=== PATIENT | male | born 1960 | race Caucasian/White ===

== ENCOUNTER → 2016-12-22 | Outpatient (CLI) | payer MEDICARE, OTHER ==
[~2016-12-22] MED LIST: DICY20TA3 PO; DILT240C2 PO; IBUP-1060 PO; IOHEXOL 180 MG/ML 10 ML VIAL. IT ONE; LIDOCAINE 1% Multi-Dose 20 ML VIAL. ID ONE; LISI1TAB5 PO; LISI2.5T PO; LOPE2TAB27 PO; METH10TA2 PO; OXCA600T PO; SILD10VI2 IV
--- NOTE | 2016-12-22 15:14 | KCIC ---
PROCEDURE Lumbar myelogram 12/22/2016 HISTORY Low back pain which radiates down the left leg for 4 months. TECHNIQUE After the risks and benefits of the procedure were explained the patient, written informed consent was obtained. The patient was placed prone on the fluoroscopy table lower back was prepped and draped in sterile fashion. 1 percent lidocaine was used as a local anesthetic. Under fluoroscopic guidance, the thecal sac of the lumbar cistern was punctured at the L3-4 level using a 25 gauge Viki needle. After confirming clear CSF return, 15 cc of Omnipaque 180 were injected through the needle into the thecal sac of the lumbar cistern under fluoroscopic control. Following this the needle was removed and hemostasis achieved at the puncture site. A sterile Band-Aid was placed on the skin puncture site. AP, lateral, bilateral oblique and standing neutral and flexion and extension lateral digital spot radiographs of the lumbar spine were obtained. Following this the patient was taken to CT where a CT scan of the lumbar spine was performed. This will be reported separately. The patient was then taken to the recovery area were he was observed for approximately 30 minutes prior to discharge home. The patient was sent home with an instruction sheet. The patient tolerated the procedure well and there were no immediate complications. The total fluoroscopic time for this study was 1 minutes 23 seconds. Nine digital spot radiographs were obtained. FINDINGS Minimal S-shaped curvature of the thoracolumbar spine is seen. Degenerative changes consisting vertebral endplate sclerosis and minimal to mild anterior and posterior vertebral body osteophyte formation are seen throughout the lumbar disc spaces. Degenerative changes are seen involving the facet joints of the mid and lower lumbar spine. A mild anterior extradural defect is seen upon the contrast column at L2-3. Mild anterior and posterior extradural defects are seen upon the contrast column at L3-4. Mild to moderate anterior and posterior extradural defects are seen involving the contrast column at L4-5. There is no evidence of complete block of contrast at any level involving the lumbar vertebrae. Symmetric cut off of the L5 nerve roots is seen at L4-5. The alignment of the lumbar vertebrae is maintained on the flexion and extension radiographs. Scattered atherosclerotic plaque formation is seen involving the abdominal aorta. IMPRESSION Degenerative changes are seen involving the lumbar spine which is most severe at L4-5 as outlined above. Electronically signed by: Filipe Bazzi MD (Dec 22, 2016 15:12:56)
--- NOTE | 2016-12-22 15:25 | KCIC ---
PROCEDURE AP and lateral lumbar spine radiographs to include flexion and extension views 12/22/2016 HISTORY Low back pain which radiates down the left leg for 4 months. FINDINGS AP and 2 neutral lateral standing and flexion and extension lateral digital radiographs of the lumbar spine were obtained. Minimal S-shaped curvature of the thoracolumbar spine is seen. Degenerative changes are seen throughout the lumbar disc spaces consisting of vertebral endplate sclerosis and minimal to mild anterior and posterior vertebral body osteophyte formation. Degenerative changes are seen involving the facet joints of the mid and lower lumbar spine. Atherosclerotic calcification of the abdominal aorta is noted. No fracture or subluxation of the lumbar vertebrae is seen. The alignment of the lumbar vertebrae is maintained on the flexion and extension radiographs. IMPRESSION Degenerative changes are seen involving the lumbar spine as outlined above. No acute osseous abnormality is seen. Electronically signed by: Filipe Bazzi MD (Dec 22, 2016 15:24:05)
--- NOTE | 2016-12-22 15:43 | KCIC ---
PROCEDURE CT lumbar myelogram 12/22/2016 HISTORY Low back pain which radiates down the left leg for the last 4 months. TECHNIQUE This study was performed after the patient's lumbar myelogram. Contiguous, 0.6 millimeter axial sections were obtained through the lumbar spine. 3 millimeter reconstructed sagittal, axial and coronal images were obtained. One or more of the following individualized dose reduction techniques were utilized for this study: 1. Automated exposure control. 2. Adjustment of the mA and/or kV according to patient size. 3. Use of iterative reconstruction technique. FINDINGS Comparison is made to the patient's lumbar myelogram performed earlier today. Sagittal and coronal reconstructed images demonstrate minimal S-shaped curvature of the thoracolumbar spine. Degenerative changes consisting of vertebral endplate sclerosis and minimal to mild anterior and posterior vertebral body osteophyte formation are seen throughout the lumbar disc spaces. Atherosclerotic calcification of the abdominal aorta and its branches is noted. At the L1-2 disc space there is minimal generalized disc bulge. Degenerative changes are seen involving the facet joints bilaterally. There is mild ligamentum flavum hypertrophy bilaterally. At the L2-3 and L3-4 disc spaces there are minimal to mild generalized disc bulges. Degenerative changes are seen involving the facet joints bilaterally. There is mild ligamentum flavum hypertrophy bilaterally. These findings when combined result in very mild central spinal canal stenosis. No neural foraminal stenosis is seen. At the L4-5 disc space there is a moderate generalized disc bulge. Superimposed on the disc bulge is a central/left paracentral focal disc protrusion. This measures 3 millimeters in AP diameter. Degenerative changes are seen involving the facet joints bilaterally. There is moderate ligamentum flavum hypertrophy. These findings when combined result in mild to moderate central spinal canal stenosis with moderate to severe, left greater than right, lateral recess stenosis. Mild bilateral neural foraminal stenosis is seen. At the L5-S1 disc space there is a mild generalized disc bulge. Degenerative changes are seen involving the facet joints bilaterally. There is mild ligamentum flavum hypertrophy. These findings do not result in significant central spinal canal or neural foraminal stenosis. IMPRESSION The changes of degenerative disc disease are seen throughout the lumbar spine. These findings result in very mild central spinal canal stenosis at L2-3 and L3-4 and mild to moderate central spinal canal stenosis with moderate to severe left greater than right lateral recess stenosis. Mild bilateral neural foraminal stenosis is seen at L5-S1. Electronically signed by: Filipe Bazzi MD (Dec 22, 2016 15:42:06)
== END | disposition home or self-care (01) ==
LOC: KCIC 13:04
PROVIDERS: ATTEND Neurological Surgery
DX: M47.896 Other spondylosis, lumbar region (principal)
CPT/HCPCS: 72110; 72132; 72265